=== PATIENT | male | born 2000 | race Caucasian/White ===

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

== ENCOUNTER 2023-11-15 00:42 | Emergency (ER) | payer BC, OTHER, SELFPAY ==
[2023-11-15 00:49] VITALS: BP 143/84; PULSE 98; RESP 16; TEMP 36.8; O2SAT 96; BMI 24.3
--- NOTE | 2023-11-15 01:05 | ED.BACK ---
HPI - Back Pain/Injury General Chief Complaint: Back Pain/Injury Stated Complaint: lower back pain Time Seen by Provider: 11/15/23 00:47 Source: patient History of Present Illness HPI Narrative: 23-year-old male presents by private vehicle for right-sided lumbar back pain. Patient states that he was lying down earlier this afternoon when all of a sudden she felt a pinching sensation in his lower back. The sensation gradually worsened and so he decided to present to the ER for evaluation. Patient works in a job with lots of repetitive lifting, however he denies injuring his back that he was aware of. Patient took 2 capfuls of Children's Motrin at home prior to arrival. Denies bowel or bladder incontinence, denies saddle anesthesia. Related Data Home Medications Medication Instructions Recorded Confirmed guanfacine 4 mg tablet,extended 4 mg PO QDAY ##0 10/01/17 release 24 hr (Intuniv ER) Previous Rx's Medication Instructions Recorded clotrimazole 1 % topical cream 1 gm topical BID ##30 10/01/17 methocarbamol 500 mg tablet 500 mg PO TID #30 tabs 11/15/23 naproxen 375 mg tablet 375 mg PO BID #30 tabs 11/15/23 Allergies Allergy/AdvReac Type Severity Reaction Status Date / Time No Known Drug Allergies Allergy Verified 01/27/21 16:02 Review of Systems Review of Systems Narrative: Negative except as noted above Patient History Social History Smoking Status: Unknown if ever smoked Smoking Status: Unknown if ever smoked alcohol intake frequency: holidays/special occasions only Substance Use Type: does not use Exam Initial Vital Signs Initial Vital Signs: Vital Signs Temperature 98.3 F 11/15/23 00:49 Pulse Rate 98 H 11/15/23 00:49 Respiratory Rate 16 11/15/23 00:49 Blood Pressure 143/84 H 11/15/23 00:49 Pulse Oximetry 96 11/15/23 00:49 Oxygen Delivery Method Room Air 11/15/23 00:49 Const: Awake, alert, no acute distress, nontoxic appearing MSK back: Atraumatic, full range of motion, no midline tenderness, no step-offs, right-sided paraspinal lower lumbar tenderness to palpation Skin: Warm, Dry, intact, no rashes Neuro: AO x3, CN II-XII grossly intact, moves all extremities, gait normal Course Orders Ordered: Discontinued Medications Cyclobenzaprine HCl (Cyclobenzaprine 10 Mg Tablet) 10 mg PO NOW ONE Stop: 11/15/23 01:05 Last Admin: 11/15/23 01:31 Dose: 10 mg Documented By: MARY Dexamethasone (Dexamethasone 10 Mg/Ml Vial) 10 mg IM NOW ONE Stop: 11/15/23 01:05 Last Admin: 11/15/23 01:29 Dose: Not Given Documented By: MARY Dexamethasone (Dexamethasone 10 Mg/Ml Vial) 10 mg PO NOW ONE Stop: 11/15/23 01:36 Last Admin: 11/15/23 01:41 Dose: 10 mg Documented By: MARY Ketorolac Tromethamine (Ketorolac 30 Mg/Ml Vial) 30 mg IM NOW ONE Stop: 11/15/23 01:05 Last Admin: 11/15/23 01:29 Dose: Not Given Documented By: MARY Lidocaine (Lidocaine 5% Patch) 1 each TOP NOW ONE Stop: 11/15/23 01:05 Last Admin: 11/15/23 01:31 Dose: 1 each Documented By: MARY Vital Signs Vital signs: Vital Signs - 8 hr 11/15/23 00:49 11/15/23 02:25 Temperature 98.3 F Pulse Rate 98 H 89 Respiratory Rate 16 12 Blood Pressure 143/84 H Pulse Oximetry 96 100 Oxygen Delivery Method Room Air Room Air MDM - Back Pain/Injury Differential Diagnosis Differential diagnosis: Likely lumbar radiculopathy, sciatica and strain of lumbar region MDM Narrative Medical decision making narrative: Well-appearing patient with 1 day of atraumatic right-sided lower lumbar pain. Patient states he took 2 cap fulls of Children's Motrin prior to arrival, however based on the fact that this is a grown adult he likely under dosed and did not receive a therapeutic dose of medication. There are no signs or symptoms of cauda equina, no indication for imaging at this time. Patient was given nonnarcotic medications for pain with improvement in symptoms. Robaxin and naproxen sent to pharmacy of choice. Patient counseled to take medications with Tylenol and to use gentle stretching exercises for pain. PCP followup advised. Discharge Plan Departure Patient Disposition: Home Clinical Impression: Strain of lumbar region Instructions: DI for Back Spasm Activity Restrictions/Additional Instructions: Take 1000 mg of Tylenol every 6-8 hours along with the medications prescribed for your back pain. Use gentle stretching exercises to help relieve your pain. Follow up with your primary care physician. Prescriptions: New methocarbamol 500 mg tablet 500 mg PO TID Qty: 30 0RF naproxen 375 mg tablet 375 mg PO BID Qty: 30 0RF No Action guanfacine [Intuniv ER] 4 MG tablet extended release 24 hr 4 mg PO QDAY Qty: 0 clotrimazole 1 % cream 1 gm Topical BID Qty: 30 0RF Stand Alone Forms: Patient Portal/API, Work Release Note
[2023-11-15] MEDS: CYCLOBENZAPRINE 10 MG TABLET PO (01:31)
[2023-11-15] MEDS: LIDOCAINE 5% PATCH 1 EACH TOP (01:31)
[2023-11-15] MEDS: DEXAMETHASONE 10 MG/ML VIAL PO (01:41)
[2023-11-15 02:25] VITALS: PULSE 89; RESP 12; O2SAT 100
== END 2023-11-15 02:27 | disposition home or self-care (01) ==
PROVIDERS: Emergency Provider Emergency Medicine
DX: S39.012A Strain of muscle, fascia and tendon of lower back, initial encounter (principal)
CPT/HCPCS: 99283; J1100

== ENCOUNTER 2023-11-17 02:26 | Emergency (ER) | payer BC, OTHER, SELFPAY ==
[2023-11-17 02:34] VITALS: BP 142/73; PULSE 83; RESP 18; TEMP 37.3; O2SAT 98; BMI 25.1
[2023-11-17 02:37] VITALS: PULSE 82; O2SAT 97
--- NOTE | 2023-11-17 02:47 | ED_ITS ---
HPI - Nausea/Vomiting/Diarrhea General Chief complaint: Nausea/Vomiting/Diarrhea Stated complaint: throwing up, weak, head hurts Time Seen by Provider: 11/17/23 02:47 Source: patient Mode of arrival: Ambulatory History of Present Illness HPI Narrative: Otherwise healthy 23-year-old man comes in with fevers, chills acute nausea vomiting and headache. He states he had an episode of nausea and vomiting on the . He was seen in the ER on the with some low back pain. The back pain has not particularly bothered him much sense and he does not like taking medications so he has not taken much of the ibuprofen, muscle relaxer or Naprosyn that had been prescribed. This evening he had an episode of acute nausea and vomiting with the retching severe enough that he was complaining of facial pain and headache. He then had what sounds like chills and rigors and then another episode of nausea and vomiting. He presents complaining of significant headache and facial pain secondary to the active vomiting. There was no blood in his emesis. He has not describing abdominal pain, there was no chest pain, coughing, palpitations, skin rashes. Related Data Home Medications Medication Instructions Recorded Confirmed guanfacine 4 mg tablet,extended 4 mg PO QDAY ##0 10/01/17 release 24 hr ([facility] ER) Previous Rx's Medication Instructions Recorded clotrimazole 1 % topical cream 1 gm topical BID ##30 10/01/17 methocarbamol 500 mg tablet 500 mg PO TID #30 tabs 11/15/23 naproxen 375 mg tablet 375 mg PO BID #30 tabs 11/15/23 Allergies Allergy/AdvReac Type Severity Reaction Status Date / Time No Known Drug Allergies Allergy Verified 01/27/21 16:02 Review of Systems Review of Systems Narrative: Pertinent positive and negative findings as per HPI Patient History Social History Smoking Status: Unknown if ever smoked Smoking Status: Unknown if ever smoked alcohol intake frequency: a few times a week Substance Use Type: does not use Exam Initial Vital Signs Initial Vital Signs: Vital Signs Temperature 99.2 F 11/17/23 02:34 Pulse Rate 83 11/17/23 02:34 Respiratory Rate 18 11/17/23 02:34 Blood Pressure 142/73 H 11/17/23 02:34 Pulse Oximetry 98 11/17/23 02:34 Oxygen Delivery Method Room Air 11/17/23 02:34 General: Healthy appearing, appears to feel unwell but Able to give a complete and coherent history. Well-nourished well-developed HEENT: Moist mucous membranes, mildly injected sclera sclera with reactive pupils, Neck: No cervical adenopathy Respiratory: Lungs are clear to auscultation, no wheezing no rales no rhonchi. Full and symmetrical air movement Cardiac: Regular rate and rhythm, 3/6 diastolic murmur heard best at the apex Abdomen: Soft, mild tenderness in the epigastrium with no rebound or guarding. Skin: Warm and dry, no rashes Neurologic: Grossly neurologically intact with no obvious asymmetries or abnormalities Extremities: No trauma, well perfused Psych: Cooperative, appropriate insight and affect Course Orders Ordered: ED Orders 11/17/23 02:54 Complete Blood Count AUTO DIFF Stat Comprehensive Metabolic Panel Stat Sodium Chloride (Normal Saline 0.9%) 1,000 mls @ 1,000 mls/hr IV BOLUS ONE Stop: 11/17/23 03:52 Last Admin: 11/17/23 02:57 Dose: 1,000 mls/hr Discontinued Medications Ketorolac Tromethamine (Ketorolac 30 Mg/Ml Vial) 15 mg IV NOW ONE Stop: 11/17/23 02:54 Last Admin: 11/17/23 02:58 Dose: 15 mg Ondansetron HCl (Ondansetron 4 Mg/2 Ml Inj) 4 mg IV NOW ONE Stop: 11/17/23 02:54 Last Admin: 11/17/23 02:58 Dose: 4 mg Vital Signs Vital signs: Vital Signs - 8 hr 11/17/23 02:34 11/17/23 02:37 11/17/23 03:00 Temperature 99.2 F Pulse Rate 83 82 Respiratory Rate 18 Blood Pressure 142/73 H 141/66 H Pulse Oximetry 98 97 Oxygen Delivery Method Room Air 11/17/23 03:00 Temperature Pulse Rate 95 H Respiratory Rate Blood Pressure Pulse Oximetry 97 Oxygen Delivery Method Room Air MDM - Nausea/Vomiting/Diarrhea Lab Data 11/17/23 03:00 11/17/23 03:00 Labs: Lab Results 11/17/23 Range/Units 03:00 WBC 5.1 (4.5-11.0) X10^3/uL RBC 4.99 (4.5-5.9) X10^6/uL Hgb 15.3 (13.5-17.5) g/dL Hct 43.8 (41-53) % MCV 87.9 (80-100) fL MCH 30.7 (26-34) PG MCHC 34.9 (30-36) % RDW 13.5 (11.6-14.8) % Plt Count 133 L (150-400) X10^3/uL Neut % (Auto) 78.2 H (50-75) % Lymph % (Auto) 7.4 L (25-40) % [place] % (Auto) 13.1 (3-14) % Eos % (Auto) 1.1 L (2-4) % Baso % (Auto) 0.2 (0-2) % Neut # (Auto) 4000 (1899-8709) /uL Lymph # (Auto) 400 L (7341-9555) /uL [place] # (Auto) 700 (0-900) /uL Eos # (Auto) 100 (0-450) /uL Baso # (Auto) 0 (0-100) /uL Sodium 135 L (137-145) mmol/L Potassium 4.1 (3.4-5.1) mmol/L Chloride 103 (98-107) mmol/L Carbon Dioxide 26 (22-32) mmol/L BUN 17 (9-20) mg/dL Creatinine 0.93 (0.66-1.25) mg/dL Estimated GFR > 60 (>60) mL/min BUN/Creatinine Ratio 18.3 (6-22) Glucose 104 H (70-100) mg/dL Calcium 9.1 (8.4-10.2) mg/dL Total Bilirubin 0.8 (0.2-1.3) mg/dL AST 36 (17-59) IU/L ALT 60 H (<50) IU/L Alkaline Phosphatase 116 (38-126) U/L Total Protein 7.2 (6.3-8.2) g/dL Albumin 4.1 (3.5-5.0) g/dL Globulin 3.1 (1.7-4.1) g/dL Albumin/Globulin Ratio 1.3 (1.0-2.8) MDM Narrative Medical decision making narrative: CC: Acute nausea and vomiting associated with fevers chills, Data collected from: patient Differential considered: Viral syndrome, food poisoning, bacterial etiology, no evidence of trauma to suggest intracranial pressure Exam documented above, pertinent findings include: Patient has injected sclera and mildly tender epigastrium. Incidental 3/6 diastolic heart murmur appreciated at the apex. remainder of exam benign Lab Test results independently reviewed as above. Pertinent findings: CBC is unremarkable Chemistries are reassuring Treatments: Fluids, Toradol, Zofran Re-evaluations: Patient is feeling significantly improved after rehydration and medications. Discussion: 23-year-old young man likely with viral syndrome. We will send him home with Zofran and suggest ibuprofen and Tylenol as needed for fevers or body aches. Reviewed the incidental heart murmur that I found. Given the fact that he is acutely ill it may be volume related however I have suggested that at some point when he is feeling back to his baseline that he should have his primary care physician was then closely to his heart and see if additional workup is required. At this point there is no indication for additional imaging studies or hospitalization. Reviewed findings with the patient, questions were answered and he is safe for discharge Discharge Plan Departure Patient Disposition: Home Clinical Impression: Moderate nausea and vomiting, Heart murmur Headache Qualifiers: Headache type: unspecified Headache chronicity pattern: acute headache I ntractability: not intractable Qualified Code(s): R51.9 - Headache, unspecified Instructions: DI for Viral Gastroenteritis -- Adult Activity Restrictions/Additional Instructions: Thank you for coming in today You are given fluids, Toradol which is similar to ibuprofen given 3 or IV, Zofran to help with nausea and each of these did significantly improve your symptoms. Your blood work was very reassuring with no evidence of overwhelming bacterial infection, kidney function abnormalities electrolyte abnormalities or liver problems. With the fever, the chills, the red eyes, headache, nausea and vomiting I suspect that you have a virus. I would recommend using 400 mg of ibuprofen and 1 Tylenol every 6 hours to help with fever and body aches. I have given you a couple of tablets of Zofran/ondansetron to use for nausea. You may still feel sick for a couple of days. To allowing herself to rest would be very appropriate. If you feel that you are getting worse, please return to the ER Prescriptions: No Action guanfacine [[facility] ER] 4 MG tablet extended release 24 hr 4 mg PO QDAY Qty: 0 clotrimazole 1 % cream 1 gm Topical BID Qty: 30 0RF methocarbamol 500 mg tablet 500 mg PO TID Qty: 30 0RF naproxen 375 mg tablet 375 mg PO BID Qty: 30 0RF Stand Alone Forms: Patient Portal/API
[2023-11-17] MEDS: SODIUM CHLORIDE 0.9% 1,000 ML 1000 ML IV (02:57)
[2023-11-17] MEDS: KETOROLAC 30 MG/ML VIAL 15 MG IV (02:58)
[2023-11-17] MEDS: ONDANSETRON 4 MG/2 ML INJ IV (02:58)
[2023-11-17 03:00] VITALS: BP 141/66; PULSE 95; O2SAT 97
--- NOTE | 2023-11-17 03:08 | PC.NURSE ---
has been taking medication for back pain that he received from the ED on 11/14 for back pain which was robaxin and toradol, pt states he doesn't believe the medication made him sick c/o + n/v with john
[2023-11-17 03:12] LABS: Add Manual Diff / Slide Review NO; Basophils Absolute Auto 0 /uL (0-100); Basophils Percent Auto 0.2 % (0-2); Eosinophils Absolute Auto 100 /uL (0-450); Eosinophils Percent Auto 1.1 % (2-4); Hematocrit 43.8 % (41-53); Hemoglobin 15.3 g/dL (13.5-17.5); Lymphocytes Absolute Auto 400 /uL (1100-4500); Lymphocytes Percent Auto 7.4 % (25-40); Mean Corpuscular HGB Conc 34.9 % (30-36); Mean Corpuscular Hemoglobin 30.7 PG (26-34); Mean Corpuscular Volume 87.9 fL (80-100); Monocytes Absolute Auto 700 /uL (0-900); Monocytes Percent Auto 13.1 % (3-14); Neutrophils Absolute Auto 4000 /uL (1500-7000); Neutrophils Percent Auto 78.2 % (50-75); Platelet Count 133 X10^3/uL (150-400); Red Blood Cell Count 4.99 X10^6/uL (4.5-5.9); Red Cell Distribution Width 13.5 % (11.6-14.8); White Blood Cell Count 5.1 X10^3/uL (4.5-11.0)
[2023-11-17 03:20] LABS: Alanine Aminotransferase 60 IU/L (<50); Albumin 4.1 g/dL (3.5-5.0); Albumin Globulin Ratio 1.3 (1.0-2.8); Alkaline Phosphatase 116 U/L (38-126); Aspartate Aminotransferase 36 IU/L (17-59); BUN Creatinine Ratio 18.3 (6-22); Bilirubin Total 0.8 mg/dL (0.2-1.3); Blood Urea Nitrogen 17 mg/dL (9-20); Calcium 9.1 mg/dL (8.4-10.2); Carbon Dioxide 26 mmol/L (22-32); Chloride 103 mmol/L (98-107); Estimated Glomerular Filt Rate > 60 mL/min (>60); Globulin 3.1 g/dL (1.7-4.1); Glucose 104 mg/dL (70-100); HEMOLYSIS < 15 (0-50); Potassium 4.1 mmol/L (3.4-5.1); Sodium 135 mmol/L (137-145); Total Protein 7.2 g/dL (6.3-8.2)
[2023-11-17 03:30] VITALS: BP 137/68; PULSE 100; RESP 16; O2SAT 97
[2023-11-17] MEDS: ONDANSETRON 4 MG ODT PREPACK 1 BOTTLE MISC (03:43)
== END 2023-11-17 03:49 | disposition home or self-care (01) ==
PROVIDERS: Emergency Provider Emergency Medicine
DX: R11.2 Nausea with vomiting, unspecified (principal); R51.9 Headache, unspecified; R01.1 Cardiac murmur, unspecified
CPT/HCPCS: 36415; 80053; 85025; 96374; 96375; 99283; 99284; J1885; J2405